=== PATIENT | male | born 1970 | race Hispanic/Latino ===

== ENCOUNTER → 2019-11-17 | Day surgery (SDC) | payer BC ==
[~2019-11-17] MED LIST: ACETAMINOPHEN 1000 MG/100 ML 100 ML IV ONE; ACETAMINOPHEN 1000 MG/100 ML IV ONE; BACITRACIN 50,000 UNIT VIAL ONE; BUPIVACAINE HCL 0.5% INJ 30 ML VIAL INJ ONE; CEFAZOLIN SOD 1 GM/NS 50ML 100 ML IV ONE; DEXAMETHASONE SOD PHOS INJ 4 MG/ML VIAL ONE; FENTANYL CITRATE/PF 100MCG/2 ML INJ ONE; HYDROMORPHONE 1MG/1ML INJ ONE; KETOROLAC TROMETHAMINE 30 MG/ML VIAL ONE; LIDOCAINE HCL 2% LOCAL INJ 5 ML SDV VIAL INJ ONE; MIDAZOLAM HCL 2 MG/2 ML VIAL ONE; MORPHINE SULFATE INJ 4 MG/ML INJ 1ML ONE; ONDANSETRON HCL INJ 2MG/ML 2ML 2 MG/ML VIAL ONE; PROPOFOL IV EMULSION 10 MG/ML 20 ML VIAL ONE; SEVOFLURANE INHAL SOLN 250 ML PEN BTL ONE; TRAMADOL HCL 50 MG TAB ONE
[2019-11-17 18:00] VITALS: BP 146/92
--- NOTE | 2019-11-19 19:57 | Operative Report ---
DATE OF PROCEDURE: 11/17/2019 SURGEON: Joss Lord MD PREOPERATIVE DIAGNOSIS: Impending malunion of a left bimalleolar ankle fracture. POSTOPERATIVE DIAGNOSIS: Impending malunion of a left bimalleolar ankle fracture. OPERATIONS AND PROCEDURES PERFORMED: The patient underwent a takedown of an impending malunion of a left fibular fracture, followed by an open reduction of the left ankle mortise, followed by open reduction and internal fixation of a fibular fracture. CHANNELING MACHINE RUNNER: FARIDA Ochoa. ANESTHESIA: General endotracheal intubation anesthesia. IV FLUIDS: Per the anesthesia record. BRIEF DESCRIPTION OF THE PATIENT'S HISTORY: Mr. Owens is a 49-year-old male, who presents to the office approximately one month out from a left ankle injury. The patient has experienced a fall injuring his left ankle. He initially presented to his primary care physician. He experienced a fall injuring the left ankle and did not seek immediate medical attention. He was not referred to our office until a month following his injury. At the time of his clinic evaluation, x-rays demonstrated a bimalleolar ankle fracture with significant displacement of the ankle mortise. There was copious callus formation on the x-ray confirming a subacute injury. The patient had been walking on his ankle since his original injury. BRIEF DESCRIPTION OF THE PATIENT'S OPERATIVE PROCEDURE: Mr. Owens was taken to the operating room and placed in supine position on the operating table. Following induction of general anesthesia as well as the endotracheal intubation, the patient's left lower extremity was examined under anesthesia. There was no significant bruising about the ankle joint. There was mild swelling of the ankle. Fluoroscopic evaluation of the ankle demonstrated a displaced and shortened fibular fracture with widening of the ankle mortise. There was a small avulsion injury of the medial malleolus. The patient's lower extremity was prepped and draped in standard surgical fashion. The case was begun by approaching the fibula. An incision was created directly over the fibula and blunt dissection was used to deepen the incision to the level of the fibular fracture. There was significant scarring throughout the approach and the soft tissues were elevated and a combination of blunt and sharp dissection from the lateral aspect of the fibula. Copious callus was also found to be present at the level of the patient's fracture site. Careful debridement of the callus allowed identification of normal bony anatomy. Once this had been achieved, the fibula was brought out to length and held in place with a fracture reduction clamp. Fluoroscopic evaluation, however, demonstrated continued displacement of the ankle mortise. An incision was created over the medial ankle joint and blunt dissection was used to deepen the incision to the medial ankle joint. The capsule was incised and significant scar tissue was removed from the medial ankle joint. The ankle mortise was then able to be reduced and the fibular fracture was again stabilized using a fracture clamp. A plate was contoured to the lateral aspect of the fibula. The patient's fibular fracture was bone grafted and then the plate was affixed to the fibula both with combinations of cortical and locking screws. Repeat fluoroscopic evaluation of the ankle demonstrated reduction of the patient's fibular fracture and realignment of the patient's ankle mortise. The medial wound was then copiously irrigated with bacitracin-laden normal saline. The medial malleolus injury was found to be a thin wafer of bone that was somewhat morselized. An end-to-end repair of the deltoid ligament and capsule was performed at this time. The remaining soft tissues were closed in a multilayer fashion. Sterile dressings were applied and a well-molded 3-sided splint was placed on the lower extremity. The patient was then awakened and taken to the postanesthesia care unit in stable condition. Eda Carvajal acted as first leveler for this case and was necessary for both the prepping and draping the patient as well as the retraction of soft tissues and closure of the wounds to allow this case to be successful. MD SENDY Cooper/PARMINDER /[id number]
== END | disposition home or self-care (01) ==
LOC: OR 07:00
PROVIDERS: ATTEND Specialist
DX: S82.62XA Displaced fracture of lateral malleolus of left fibula, initial encounter for closed fracture (principal); S82.52XA Displaced fracture of medial malleolus of left tibia, initial encounter for closed fracture; I10 Essential (primary) hypertension; Y93.I9 Activity, other involving external motion; J45.909 Unspecified asthma, uncomplicated; F41.9 Anxiety disorder, unspecified
CPT/HCPCS: 27792; 93005; C1713 ×8; J0131; J0690; J1100; J1170; J1885; J2001; J2250; J2270; J2405; J2704; J3010

== ENCOUNTER 2020-02-16 09:42 | Emergency (ER) | payer BC ==
[~2020-02-16] VITALS: Ht 170.2 cm; Wt 93.0 kg
[2020-02-16] MEDS ORDERED: CLONIDINE HCL 0.1 MG TAB PO ONE (10:00)
[2020-02-16 10:14] VITALS: BP 164/101
== END 2020-02-16 10:19 | disposition home or self-care (01) ==
LOC: ER 09:42
DX: I10 Essential (primary) hypertension (principal); E11.9 Type 2 diabetes mellitus without complications
CPT/HCPCS: 99282

== ENCOUNTER 2020-03-13 07:00 | Outpatient (RCR) | payer BC | END 2020-03-26 | LOC: PT 07:00 | PROVIDERS: ATTEND Specialist | DX: S82.892A Other fracture of left lower leg, initial encounter for closed fracture (principal); M25.572 Pain in left ankle and joints of left foot; M25.672 Stiffness of left ankle, not elsewhere classified; M62.81 Muscle weakness (generalized); R26.2 Difficulty in walking, not elsewhere classified ==